=== PATIENT | female | born 1950 | race Caucasian/White ===

== ENCOUNTER 2022-12-13 15:20 | Emergency (ER) | payer MEDICARE, SELFPAY ==
[2022-12-13 15:21] VITALS: BP 194/115; PULSE 100; RESP 16; TEMP 37.1; O2SAT 99; BMI 17.6
[2022-12-13 15:59] VITALS: BP 180/108; PULSE 96; RESP 16; O2SAT 98
--- NOTE | 2022-12-13 16:08 | EX.ED.DYSGE1 ---
HPI History of Present Illness Chief Complaint: Wound PFSH PFSH Medical History no medical history Home Medications acetaminophen 325 mg tablet (Tylenol) 650 mg PO Q4H PRN PRN Pain ##0 11/12/15 [Rx Last Taken Unknown] cyclobenzaprine 10 mg tablet 5 mg PO TID PRN PRN SPASMS ##0 11/12/15 [Rx Last Taken Unknown] docusate sodium 100 mg capsule (DOK) 200 mg PO BID PRN PRN Constipation ##0 11/12/15 [Rx Last Taken Unknown] famotidine 20 mg tablet 20 mg PO BID 11/12/15 [Rx Last Taken Unknown] ferrous sulfate 325 mg (65 mg iron) tablet 325 mg PO BIDCM ##1 11/12/15 [Rx Last Taken Unknown] oxycodone 5 mg tablet 10 mg PO Q4H PRN PRN Severe Pain (6-10/10) ##60 11/12/15 [Rx Last Taken Unknown] Allergy/AdvReac Type Severity Reaction Status Date / Time No Known Allergies Allergy Verified 12/13/22 15:24 Social History Smoking Status: Former smoker EXAM Physical Exam Const Vital Signs: 12/13/22 15:21 12/13/22 15:59 Temperature 98.8 F Temperature Source Temporal Pulse Rate 100 96 Respiratory Rate 16 16 Blood Pressure 194/115 H 180/108 H Blood Pressure Mean 141 132 Pulse Ox 99 98 Oxygen Delivery Method Room Air [place] [facility] [place] Medical decision making narrative: HISTORY OF PRESENT ILLNESS: 72-year-old female here for redness and drainage after having minor trauma to the left hand. She states since then she had redness. States today started draining yellow and white fluid. She denies any fever or vomiting. She think she may have an infection. REVIEW OF SYSTEMS: Pertinent positives: Wound Pertinent negatives: Fever, vomit PHYSICAL EXAM: Nursing triage notes reviewed, Vital signs reviewed Constitutional: please see mdm Extremities: No edema, compartments are soft Neuro: Intact 5/5 strength with ok sign (median), intact finger abduction (ulnar) intact wrist extension (radial n). Intact sensation in the radial, ulnar, and median nerve distributions. Skin: erythema noted to the dorsal surface of the left hand tracking up to the Plantar surface of the wrist. No crepitus or bullae noted. No area of fluctuance noted MEDICAL DECISION MAKING: Chief Complaint: Wound External records reviewed: Last ED visit in 2016 Factors affecting care: Social determinants of health: History obtained from others: Consults: none ALL IMAGES (IF OBTAINED) HAVE BEEN PERSONALLY REVIEWED AND INTERPRETED BY MYSELF. MDM Narrative: 69-year-old female here with left upper extremity redness after minor trauma. I considered the following differential diagnosis: Necrotizing fasciitis, cellulitis, abscess No area of fluctuance or induration noted. No crepitus or bullae. Patient appears stable nontoxic. Gave Bactrim and Keflex for antimicrobial effect. Will discharge with close follow-up and return precautions. Total critical care time today provided was at least 0 minutes. This excludes separately billable procedures. There was a high probability of clinically significant/life threatening deterioration in the patient's condition which required my urgent intervention. Shared decision making: I will have a discussion with the patient and or visitors regarding risk/benefits of further testing or admission. They will be made aware of of the risk/benefits inherent in this decision they will be given the opportunity to voice understanding. Discharge Plan Triage Chief Complaint: Wound ED Provider: Cuauhtemoc Ornelas Dx/Rx/DC Orders Prescriptions: No Action cyclobenzaprine 10 MG tablet 5 mg PO TID PRN PRN (Reason: SPASMS) Qty: 0 0RF Label Comments: muscle relaxer famotidine 20 MG tablet 20 mg PO BID 0RF Label Comments: acid reflux docusate sodium [DOK] 100 MG capsule 200 mg PO BID PRN PRN (Reason: Constipation ) Qty: 0 0RF Label Comments: stool softener oxycodone 5 MG tablet 10 mg PO Q4H PRN PRN (Reason: Severe Pain (6-10/10)) Qty: 60 0RF Label Comments: pain acetaminophen [Tylenol] 325 MG tablet 650 mg PO Q4H PRN PRN (Reason: Pain) Qty: 0 0RF Label Comments: mild pain ferrous sulfate 325 MG tablet 325 mg PO BIDCM Qty: 1 0RF Label Comments: supplement Primary Care Provider: Care Physician,No Primary Referrals: Care Physician,No Primary [Primary Care Provider] -
[2022-12-13] MEDS: Cephalexin 250 MG Capsule 500 MG PO (16:35)
[2022-12-13] MEDS: Smz/Tmp Ds Tablet 1 TABLET PO (16:35)
== END 2022-12-13 16:54 | disposition home or self-care (01) ==
PROVIDERS: Emergency Provider Emergency Medicine; Visit Provider Emergency Medicine
DX: S69.92XA Unspecified injury of left wrist, hand and finger(s), initial encounter (principal); Z87.891 Personal history of nicotine dependence; X58.XXXA Exposure to other specified factors, initial encounter
CPT/HCPCS: 99283